=== PATIENT | male | born 2000 | race Caucasian/White ===

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

== ENCOUNTER 2021-03-15 14:19 | Emergency (ER) | payer OTHER ==
[2021-03-15 15:23] LABS: Absolute Lymphocytes (CBC) 1.8 K/uL (0.7-4.9); Basophils % 0.6 % (0-1.3); Hematocrit 44.2 % (39.6-49.0); Lymphocytes % 14.5 % (15.3-44.8); RBC Red Blood Cell Count 5.03 M/uL (4.33-5.43)
[2021-03-15] MEDS ORDERED: PROMETHAZINE INJ 25 MG/ML AMP ONE (15:28)
[2021-03-15] MEDS ORDERED: NA CHLORIDE 0.9% 1,000 ML ONE ×2 (15:28→18:41)
[2021-03-15 15:44] LABS: ALT/SGPT 29 U/L (12-78); Albumin 4.8 g/dL (3.4-5.0); Alkaline Phosphatase 75 U/L (45-117); BUN Blood Urea Nitrogen 9 mg/dL (7-18); Bicarbonate 23 mmol/L (21-32); Bilirubin Direct 0.1 mg/dL (0-0.2); Bilirubin Total 0.5 mg/dL (0.2-1.0); Glucose Level 105 mg/dL (74-106); Lipase 66 U/L (73-393); Protein, Total 8.1 g/dL (6.4-8.2); Sodium Level 142 mmol/L (136-145)
[2021-03-15 15:45] LABS: AST/SGOT 25 U/L (15-37)
--- NOTE | 2021-03-15 18:15 | RAD REPORT ---
EXAM DESCRIPTION: CT - Abdomen Pelvis W Contrast - 03/15/2021 5:58 pm CLINICAL HISTORY: ABD PAIN COMPARISON: <Comparisons> TECHNIQUE: Biphasic, helical CT imaging of the abdomen and pelvis was performed following 100 ml non -ionic IV contrast. No oral contrast administered. All CT scans are performed using dose optimization technique as appropriate and may include automated exposure control or mA/KV adjustment according to patient size. FINDINGS: No suspicious findings in the lung bases. The liver, spleen, and pancreas show no suspicious findings. Gallbladder and biliary tree are also wi thout suspicious finding. Symmetric renal function is seen with no hydronephrosis or suspicious renal mass. No pyelonephritis o r acute parenchymal process. No bladder abnormalities. No adrenal abnormalities. No dilated bowel loops or bowel wall thickening. No appendicitis findings. No free air, free fluid or inflammatory stranding. No hernia, mass or bulky lymphadenopathy. No suspicious bony findings. IMPRESSION: Contrast enhanced CT abdomen and pelvis showing no significant or suspicious finding.
--- NOTE | 2021-03-15 18:38 | ER ---
Nurse's Notes [facility] Name: Frederick Blake Age: 20 yrs Sex: Male : 2000 Arrival Date: 03/15/2021 Time: 14:22 Bed 23 Private MD: Diagnosis: Vomiting;Diarrhea, unspecified;Abdominal pain, Generalized Presentation: 03/15 14:22 Chief complaint: EMS states: Called for vomiting that began at 0700 today, reports may lp1 have eaten something bad; patient's mother gave him Phenergan and Zofran without relief; EMS administered Phenergan 12.5mg IV and NS 250ml; Patient reports continued nausea. 14:22 Coronavirus screen: At this time, the client does not indicate any symptoms associated lp1 with coronavirus-19. Ebola Screen: No symptoms or risks identified at this time. Initial Sepsis Screen: Does the patient meet any 2 criteria? No. Patient's initial sepsis screen is negative. Does the patient have a suspected source of infection? No. Patient's initial sepsis screen is negative. Risk Assessment: Do you want to hurt yourself or someone else? Patient reports no desire to harm self or others. Onset of symptoms was March 15, 2021. 14:22 Method Of Arrival: EMS: [facility] lp1 14:22 Acuity: LETICIA 3 lp1 14:59 Care prior to arrival: IV initiated. 20 GA, in the right antecubital area. lp1 Historical: - Allergies: 16:35 No Known Allergies; lp1 - Home Meds: 16:35 None [Active]; lp1 - PMHx: 16:35 Asthma; Migraines; seasonal allergies; lp1 - Immunization history:: Adult Immunizations up to date. - Social history:: Smoking status: Patient denies any tobacco usage or history of. Screenin:35 Abuse screen: Denies threats or abuse. Denies injuries from another. Nutritional lp1 screening: No deficits noted. Tuberculosis screening: No symptoms or risk factors identified. Fall Risk None identified. Assessment: 17:01 General: Appears in no apparent distress. uncomfortable, Behavior is calm, cooperative, aj1 appropriate for age. Pain: Denies pain. Neuro: Level of Consciousness is awake, alert, obeys commands, Oriented to person, place, time, situation. Cardiovascular: Patient's skin is warm and dry. Respiratory: Airway is patent Respiratory effort is even, unlabored, Respiratory pattern is regular, symmetrical. GI: Abdomen is flat, non-distended, Bowel sounds present X 4 quads. Abd is soft X 4 quads Reports diarrhea, nausea, vomiting. : No signs and/or symptoms were reported regarding the genitourinary system. EENT: No signs and/or symptoms were reported regarding the EENT system. Derm: Skin is pale. Musculoskeletal: No signs and/or symptoms reported regarding the musculoskeletal system. Circulation, motion, and sensation intact. 18:19 Reassessment: Patient appears in no apparent distress at this time. No changes from aj1 previously documented assessment. Patient and/or family updated on plan of care and expected duration. Pain level reassessed. Patient is alert, oriented x 3, equal unlabored respirations, skin warm/dry/pink. Vital Signs: 14:22 BP 110 / 81; Pulse 56; Resp 16; Temp 97.8(O); Pulse Ox 100% on R/A; Weight 63.5 kg (R); lp1 Height 5 ft. 5 in. (165.10 cm); Pain 0/10; 17:01 BP 122 / 79; Pulse 53; Resp 18; Pulse Ox 100% on R/A; aj1 18:20 BP 127 / 80; Pulse 51; Resp 16; Pulse Ox 99% ; aj1 19:29 BP 126 / 77 LA Sitting (auto/reg); Pulse 75; Resp 14 S; Temp 98.3(O); Pulse Ox 100% on sj1 R/A; Pain 0/10; 14:22 Body Mass Index 23.30 (63.50 kg, 165.10 cm) lp1 ED Course: 14:22 Patient arrived in ED. am2 14:52 Triage completed. lp1 14:52 Arm band placed on. lp1 15:07 Initial lab(s) drawn, by me, sent to lab. Maintain EMS IV. Dressing intact. Good blood lp1 return noted. Site clean \T\ dry. Gauge \T\ site: 20g to R AC. 16:35 Patient has correct armband on for positive identification. lp1 16:52 Nikita Metcalf MD is Attending Physician. [facility] 16:57 Darling Cummings RN is Primary Nurse. aj1 17:01 No provider procedures requiring assistance completed. aj1 17:57 CT Abd/Pelvis - IV Contrast Only In Process Unspecified. EDMS 18:38 Maldonado Nunes MD is Referral Physician. [facility] 18:40 Chest Single View XRAY In Process Unspecified. EDMS 19:29 IV discontinued, intact, bleeding controlled, No redness/swelling at site. sj1 19:31 Basic Metabolic Panel Sent. sj1 19:31 CBC with Diff Sent. sj1 19:31 Hepatic Function Sent. sj1 Administered Medications: 15:07 Drug: NS 0.9% 1000 ml Route: IV; Rate: 1000 ml; Site: right antecubital; lp1 19:16 Follow up: IV Status: Completed infusion; IV Intake: 1000ml aj1 15:07 Drug: Phenergan (promethazine) 12.5 mg Route: IVP; Site: right antecubital; lp1 19:15 Follow up: Response: No adverse reaction aj1 18:19 Drug: NS 0.9% 1000 ml Route: IV; Rate: 1 bolus; Site: right antecubital; aj1 18:19 Drug: Zofran (Ondansetron) 4 mg Route: IVP; Site: right antecubital; aj1 19:16 Follow up: Response: No adverse reaction aj1 19:16 Not Given (Patient Refused): morphine 2 mg IVP once; RASS on ADMIN: Combtv4, Very aj1 Agttd3, Agttd2, Rstlss1, AlertClm0, Drwsy-1, Lt Sdtn-2, Mod Sdtn-3, Dp Sdtn-4, UnArsble-5 19:16 Not Given (Physician Discretion): NS 0.9% 1000 ml IV at 1 bolus Per protocol; 1000 mL aj1 bolus Intake: 19:16 IV: 1000ml; Total: 1000ml. aj1 Outcome: 18:38 Discharge ordered by . clarence 19:29 Discharged to home ambulatory. sj1 19:29 Condition: stable 19:29 Discharge instructions given to patient, Instructed on discharge instructions, follow up and referral plans. medication usage, Demonstrated understanding of instructions, follow-up care, medications. 19:32 Patient left the ED. sj1 Signatures: Dispatcher [employer] EDMS Darling Cummings RN RN aj1 Nikita Metcalf MD MD cha Pena, Laura RN RN lp1 Tori Elizabeth am2 Linda Cummings, RN RN sj1
--- NOTE | 2021-03-15 18:38 | EDPHYS ---
Physician Documentation [facility] Name: Frederick Blake Age: 20 yrs Sex: Male : 2000 Arrival Date: 03/15/2021 Time: 14:22 Bed 23 Private MD: ED Physician Nikita Metcalf HPI: 03/15 16:53 This 20 yrs old Male presents to ER via EMS with complaints of Vomiting. clarence 16:53 The patient presents to the emergency department with. clarence Historical: - Allergies: 16:35 No Known Allergies; lp1 - Home Meds: 16:35 None [Active]; lp1 - PMHx: 16:35 Asthma; Migraines; seasonal allergies; lp1 - Immunization history:: Adult Immunizations up to date. - Social history:: Smoking status: Patient denies any tobacco usage or history of. ROS: 17:43 Constitutional: Negative for fever, chills, and weight loss, Eyes: Negative for injury, clarence pain, redness, and discharge, ENT: Negative for injury, pain, and discharge, Neck: Negative for injury, pain, and swelling, Cardiovascular: Negative for chest pain, palpitations, and edema, Respiratory: Negative for shortness of breath, cough, wheezing, and pleuritic chest pain, Back: Negative for injury and pain, : Negative for injury, bleeding, discharge, and swelling, MS/Extremity: Negative for injury and deformity, Skin: Negative for injury, rash, and discoloration, Neuro: Negative for headache, weakness, numbness, tingling, and seizure, Psych: Negative for depression, anxiety, suicide ideation, homicidal ideation, and hallucinations, Allergy/Immunology: Negative for hives, rash, and allergies, Endocrine: Negative for neck swelling, polydipsia, polyuria, polyphagia, and marked weight changes, Hematologic/Lymphatic: Negative for swollen nodes, abnormal bleeding, and unusual bruising. 17:43 Abdomen/GI: Positive for abdominal pain, nausea and vomiting, diarrhea, of the suprapubic area, right upper quadrant, left upper quadrant, right lower quadrant and left lower quadrant. Exam: 17:43 Constitutional: This is a well developed, well nourished patient who is awake, alert, clarence and in no acute distress. Head/Face: Normocephalic, atraumatic. Eyes: Pupils equal round and reactive to light, extra-ocular motions intact. Lids and lashes normal. Conjunctiva and sclera are non-icteric and not injected. Cornea within normal limits. Periorbital areas with no swelling, redness, or edema. ENT: Nares patent. No nasal discharge, no septal abnormalities noted. Tympanic membranes are normal and external auditory canals are clear. Oropharynx with no redness, swelling, or masses, exudates, or evidence of obstruction, uvula midline. Mucous membranes moist. Neck: Trachea midline, no thyromegaly or masses palpated, and no cervical lymphadenopathy. Supple, full range of motion without nuchal rigidity, or vertebral point tenderness. No Meningismus. Chest/axilla: Normal chest wall appearance and motion. Nontender with no deformity. No lesions are appreciated. Cardiovascular: Regular rate and rhythm with a normal S1 and S2. No gallops, murmurs, or rubs. Normal PMI, no JVD. No pulse deficits. Respiratory: Lungs have equal breath sounds bilaterally, clear to auscultation and percussion. No rales, rhonchi or wheezes noted. No increased work of breathing, no retractions or nasal flaring. Back: No spinal tenderness. No costovertebral tenderness. Full range of motion. Male : Normal genitalia with no discharge or lesions. Skin: Warm, dry with normal turgor. Normal color with no rashes, no lesions, and no evidence of cellulitis. MS/ Extremity: Pulses equal, no cyanosis. Neurovascular intact. Full, normal range of motion. Neuro: Awake and alert, GCS 15, oriented to person, place, time, and situation. Cranial nerves II-XII grossly intact. Motor strength 5/5 in all extremities. Sensory grossly intact. Cerebellar exam normal. Normal gait. Psych: Awake, alert, with orientation to person, place and time. Behavior, mood, and affect are within normal limits. 17:43 Abdomen/GI: Inspection: abdomen appears normal, Bowel sounds: normal, Palpation: mild abdominal tenderness, in all quadrants, Liver: no appreciated palpable abnormalities, Hernia: not appreciated. Vital Signs: 14:22 BP 110 / 81; Pulse 56; Resp 16; Temp 97.8(O); Pulse Ox 100% on R/A; Weight 63.5 kg (R); lp1 Height 5 ft. 5 in. (165.10 cm); Pain 0/10; 17:01 BP 122 / 79; Pulse 53; Resp 18; Pulse Ox 100% on R/A; aj1 18:20 BP 127 / 80; Pulse 51; Resp 16; Pulse Ox 99% ; aj1 19:29 BP 126 / 77 LA Sitting (auto/reg); Pulse 75; Resp 14 S; Temp 98.3(O); Pulse Ox 100% on sj1 R/A; Pain 0/10; 14:22 Body Mass Index 23.30 (63.50 kg, 165.10 cm) lp1 MDM: 16:52 Patient medically screened. clarence 17:44 Differential diagnosis: Nonspecific abd pain. Data reviewed: vital signs, nurses notes, [facility] lab test result(s), EKG, radiologic studies, CT scan, plain films. 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 rate is clarence 53 beats/min, rhythm is regular, Pulse oximetry: on room air is 100 %. 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 03/15 14:52 Order name: Basic Metabolic Panel 1 03/15 14:52 Order name: CBC with Diff lp1 03/15 14:52 Order name: Hepatic Function lp1 03/15 14:52 Order name: Lipase; Complete Time: 16:52 [facility] 03/15 14:53 Order name: Basic Metabolic Panel; Complete Time: 16:52 EDMS 03/15 14:53 Order name: CBC with Automated Diff; Complete Time: 16:52 EDMS 03/15 14:53 Order name: Liver (Hepatic) Function; Complete Time: 16:52 EDMS 03/15 17:43 Order name: Chest Single View XRAY [facility] 03/15 17:43 Order name: CT Abd/Pelvis - IV Contrast Only [facility] 03/15 14:52 Order name: IV Saline Lock; Complete Time: 15:00 lp1 03/15 14:52 Order name: Labs collected and sent; Complete Time: 15:00 lp1 Administered Medications: 15:07 Drug: NS 0.9% 1000 ml Route: IV; Rate: 1000 ml; Site: right antecubital; lp1 19:16 Follow up: IV Status: Completed infusion; IV Intake: 1000ml aj1 15:07 Drug: Phenergan (promethazine) 12.5 mg Route: IVP; Site: right antecubital; lp1 19:15 Follow up: Response: No adverse reaction aj1 18:19 Drug: NS 0.9% 1000 ml Route: IV; Rate: 1 bolus; Site: right antecubital; aj1 18:19 Drug: Zofran (Ondansetron) 4 mg Route: IVP; Site: right antecubital; aj1 19:16 Follow up: Response: No adverse reaction aj1 19:16 Not Given (Patient Refused): morphine 2 mg IVP once; RASS on ADMIN: Combtv4, Very aj1 Agttd3, Agttd2, Rstlss1, AlertClm0, Drwsy-1, Lt Sdtn-2, Mod Sdtn-3, Dp Sdtn-4, UnArsble-5 19:16 Not Given (Physician Discretion): NS 0.9% 1000 ml IV at 1 bolus Per protocol; 1000 mL aj1 bolus Disposition Summary: 03/15/21 18:38 Discharge Ordered Location: Home clarence Problem: new clarence Symptoms: have improved clarence Condition: Stable clarence Diagnosis - Vomiting clarence - Diarrhea, unspecified clarence - Abdominal pain, Generalized clarence Followup: clarence - With: Private Physician - When: 2 - 3 days - Reason: Recheck today's complaints, Continuance of care, Re-evaluation by your physician Followup: clarence - With: - When: 2 - 3 days - Reason: Recheck today's complaints, Re-evaluation by your physician Discharge Instructions: - Discharge Summary Sheet clarence - Abdominal Pain, Adult clarence - Food Choices to Help Relieve Diarrhea, Adult clarence - Diarrhea, Adult clarence - Abdominal Pain, Adult, [id number] clarence - Diarrhea, Adult, [id number] clarence Forms: - Medication Reconciliation Form clarence - Thank You Letter clarence - Antibiotic Education clarence - Prescription Opioid Use clarence Prescriptions: - Pepcid 20 mg Oral Tablet - take 1 tablet by ORAL route every 12 hours for 15 days; 30 tablet; Refills: 0, clarence Product Selection Permitted - Zofran 4 mg Oral Tablet - take 1 tablet by ORAL route every 12 hours As needed; 20 tablet; Refills: 0, clarence Product Selection Permitted - dicyclomine 20 mg Oral Tablet - take 1 tablet by ORAL route 4 times per day; 28 tablet; Refills: 0, Product clarence Selection Permitted Signatures: Dispatcher [employer] Darling Mo, RN RN aj1 Nikita Metcalf MD MD cha Pena, Laura, RN RN lp1 Corrections: (The following items were deleted from the chart) 19:31 18:14 Urine Dipstick-Ancillary ordered. clarence sj1
[2021-03-15] MEDS ORDERED: ONDANSETRON 4 MG/2 ML VIAL ONE (18:41)
[2021-03-15 19:50] VITALS: BP 126/77; TEMP 98.3; O2SAT 100
--- NOTE | 2021-03-15 19:55 | RAD REPORT ---
EXAM DESCRIPTION: RAD - Chest Single View - 03/15/2021 6:40 pm CLINICAL HISTORY: COUGH COMPARISON: September 02 TECHNIQUE: AP portable chest image was obtained 03/15/2021 6:40 pm . FINDINGS: Lungs are clear. Heart and vasculature are normal. No measurable pleural effusion and no p neumothorax. No acute bony abnormality seen. No acute aortic findings suspected. IMPRESSION: No acute cardiopulmonary process. No significant change from comparison study.
== END 2021-03-15 19:32 | disposition home or self-care (01) ==
LOC: ER 14:19
DX: R19.7 Diarrhea, unspecified (principal); R10.84 Generalized abdominal pain
CPT/HCPCS: 96361; 85025; 80048; 36415; 80076; 83690; 74177; 71045; 96375; 96374; 99284; Q9967; J2550; J7030 ×2; J2405

== ENCOUNTER 2021-09-06 20:13 | Emergency (ER) | payer OTHER ==
--- NOTE | 2021-09-06 20:48 | EDPHYS ---
Physician Documentation [facility] Name: Frederick Blake Age: 21 yrs Sex: Male : 2000 Arrival Date: 09/06/2021 Time: 20:16 Bed 11 Private MD: ED Physician Seth Amezcua HPI: 09/06 23:01 This 21 yrs old Male presents to ER via Ambulatory with complaints of Laceration To Arm ms3 - Left. 23:01 The patient has a laceration related to: Water bath at work scratched arm occurred at ms3 work, and there are no complicating factors. The injury was accidental. The laceration(s) is(are) located on the Left forearm. Onset: The symptoms/episode began/occurred just prior to arrival. Associated signs and symptoms: The patient has no apparent associated signs or symptoms. 21-year-old male presents after being scratched at work by a water bath prior to arrival. Patient states his discomfort is a 1/10 and described as stinging. Patient denies alleviating or inciting factors. Historical: - Allergies: 20:32 No Known Allergies; ab2 - PMHx: 20:32 Asthma; Migraines; ab2 - Immunization history:: Adult Immunizations unknown. - Social history:: Smoking status: Reported history of juuling and/or vaping. ROS: 23:01 Constitutional: Negative for fever, and chills. Eyes: Negative for injury, pain, ms3 redness, and discharge, Neck: Negative for injury, pain, and swelling, Cardiovascular: Negative for chest pain, and palpitations. Respiratory: Negative for shortness of breath, cough, wheezing, and pleuritic chest pain, Abdomen/GI: Negative for abdominal pain, nausea, vomiting, diarrhea, and constipation, MS/Extremity: Negative for injury and deformity. 23:01 Skin: Positive for abrasion(s). 23:01 All other systems are negative. Exam: 23:01 Constitutional: This is a well developed, well nourished patient who is awake, alert, ms3 and in no acute distress. Eyes: Pupils equal round and reactive to light, extra-ocular motions intact. Lids and lashes normal. Conjunctiva and sclera are non-icteric and not injected. Periorbital areas with no swelling, redness, or edema. Neck: Trachea midline, no cervical lymphadenopathy. Supple, full range of motion without nuchal rigidity, or vertebral point tenderness. No Meningismus. Chest/axilla: Normal chest wall appearance and motion. Nontender with no deformity. Cardiovascular: Regular rate and rhythm with a normal S1 and S2. No gallops, murmurs, or rubs. Normal PMI, no JVD. No pulse deficits. Respiratory: Lungs have equal breath sounds bilaterally, clear to auscultation and percussion. No rales, rhonchi or wheezes noted. No increased work of breathing, no retractions or nasal flaring. Abdomen/GI: Soft, non-tender, with normal bowel sounds. No distension or tympany. No guarding or rebound. No evidence of tenderness throughout. 23:01 Skin: injury, abrasion(s), moderate sized abrasion noted, 6 cm(s), of the left forearm. Vital Signs: 20:28 BP 138 / 71; Pulse 106; Resp 16; Temp 97.9(TE); Pulse Ox 98% on R/A; Weight 65.77 kg; ab2 Height 5 ft. 5 in. (165.10 cm); Pain 0/10; 20:28 Body Mass Index 24.13 (65.77 kg, 165.10 cm) ab2 MDM: 20:46 Patient medically screened. ms3 23:01 Differential diagnosis: superficial laceration, Tetanus booster. Data reviewed: vital ms3 signs, nurses notes. Data interpreted: Pulse oximetry: on room air is 98 %. Interpretation: normal. Counseling: I had a detailed discussion with the patient and/or guardian regarding: the historical points, exam findings, and any diagnostic results supporting the discharge/admit diagnosis, the need for outpatient follow up, to return to the emergency department if symptoms worsen or persist or if there are any questions or concerns that arise at home. ED course: Discussed physical exam findings with patient. Patient to follow-up with his primary care physician as discussed. All questions were answered. Return precautions discussed include worsening symptoms, or any other concerns. 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 Exp: 08/09/2023. Lot #: [id number]. } lp1 Route: IM; Site: left deltoid; 21:15 Follow up: Response: Medication administered at discharge. lp1 Disposition Summary: 09/06/21 20:48 Discharge Ordered Location: Home ms3 Problem: new ms3 Symptoms: are unchanged ms3 Condition: Stable ms3 Diagnosis - Abrasion of left forearm ms3 Followup: ms3 - With: Salinas Langley MD - When: 2 - 3 days - Reason: Re-evaluation by your physician Discharge Instructions: - Discharge Summary Sheet ms3 - Abrasion ms3 Forms: - Medication Reconciliation Form ms3 - Thank You Letter ms3 - Antibiotic Education ms3 - Prescription Opioid Use ms3 Signatures: Gwen Soares RN RN lp1 Seth Amezcua DO DO ms3 Timothy Horowitz ab2 Corrections: (The following items were deleted from the chart) 21:47 21:47 PMHx: seasonal allergies; lp1 lp1
--- NOTE | 2021-09-06 20:48 | ER ---
Nurse's Notes [facility] Name: Frederick Blake Age: 21 yrs Sex: Male : 2000 Arrival Date: 09/06/2021 Time: 20:16 Bed 11 Private MD: Diagnosis: Abrasion of left forearm Presentation: 09/06 20:28 Chief complaint: Patient states: "I was at work and accidentally cut my arm on a piece ab2 of wilfrido metal. I don't know when my last tetanus shot was but I am freaking out that I'll get tetanus. I did put liquid Band-Aid on it." Pt has superficial laceration left forearm. Pt denies any pain. Coronavirus screen: Vaccine status: Patient reports receiving the 2nd dose of the covid vaccine. Client denies travel out of the [place] in the last 14 days. At this time, the client does not indicate any symptoms associated with coronavirus-19. Ebola Screen: Patient negative for fever greater than or equal to 101.5 degrees Fahrenheit, and additional compatible Ebola Virus Disease symptoms Patient denies exposure to infectious person. Patient denies travel to an Ebola-affected area in the 21 days before illness onset. No symptoms or risks identified at this time. Complicating Factors: There are no complicating factors for this patient. Initial Sepsis Screen: Does the patient meet any 2 criteria? No. Patient's initial sepsis screen is negative. Does the patient have a suspected source of infection? No. Patient's initial sepsis screen is negative. Risk Assessment: Do you want to hurt yourself or someone else? Patient reports no desire to harm self or others. Onset of symptoms is unknown. 20:28 Method Of Arrival: Ambulatory ab2 20:28 Acuity: LETICIA 4 ab2 Triage Assessment: 20:32 General: Appears in no apparent distress. comfortable, Behavior is cooperative, ab2 appropriate for age, anxious. Pain: Denies pain. Neuro: No deficits noted. 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 Cardiovascular: No deficits noted. Denies chest pain, shortness of breath. Respiratory: Airway is patent Respiratory effort is even, unlabored, Respiratory pattern is regular, symmetrical. GI: No deficits noted. No signs and/or symptoms were reported involving the gastrointestinal system. : No deficits noted. No signs and/or symptoms were reported regarding the genitourinary system. Derm: Wound noted dorsal aspect of left forearm. Injury Description: Laceration sustained to dorsal aspect of left forearm is bleeding no active bleeding noted. Historical: - Allergies: 20:32 No Known Allergies; ab2 - PMHx: 20:32 Asthma; Migraines; ab2 - Immunization history:: Adult Immunizations unknown. - Social history:: Smoking status: Reported history of juuling and/or vaping. Screenin:00 Abuse screen: Denies threats or abuse. Denies injuries from another. Nutritional lp1 screening: No deficits noted. Tuberculosis screening: No symptoms or risk factors identified. Fall Risk None identified. Assessment: 21:00 General: Appears in no apparent distress. Behavior is calm, cooperative, appropriate lp1 for age. Pain: Denies pain. Neuro: No deficits noted. Cardiovascular: Patient's skin is warm and dry. Respiratory: Respiratory effort is even, unlabored. Derm: Skin is pink, warm \\T\\ dry. Wound noted Wound is Multiple superficial abrasions to left forearm, no active bleeding. 21:00 Musculoskeletal: Circulation, motion, and sensation intact. lp1 Vital Signs: 20:28 BP 138 / 71; Pulse 106; Resp 16; Temp 97.9(TE); Pulse Ox 98% on R/A; Weight 65.77 kg; ab2 Height 5 ft. 5 in. (165.10 cm); Pain 0/10; 20:28 Body Mass Index 24.13 (65.77 kg, 165.10 cm) ab2 ED Course: 20:16 Patient arrived in ED. kz 20:26 Seth Amezcua DO is Attending Physician. ms3 20:32 Triage completed. ab2 20:33 Arm band placed on right wrist. ab2 20:47 Salinas Langley MD is Referral Physician. ms3 21:00 Patient has correct armband on for positive identification. lp1 21:00 No provider procedures requiring assistance completed. Patient did not have IV access lp1 during this emergency room visit. 21:00 Wound care: to abrasion, located on dorsal aspect of left forearm was cleaned with lp1 Hibiclens. 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 Exp: 08/09/2023. Lot #: [id number]. } lp1 Route: IM; Site: left deltoid; 21:15 Follow up: Response: Medication administered at discharge. lp1 Outcome: 20:48 Discharge ordered by . ms3 21:15 Discharged to home ambulatory. lp1 21:15 Condition: good 21:15 Discharge instructions given to patient, Instructed on discharge instructions, follow up and referral plans. Demonstrated understanding of instructions, follow-up care. 21:15 Patient left the ED. lp1 Signatures: Gwen Soares RN RN lp1 Seth Amezcua DO DO ms3 Timothy Horowitz Kelly kz Corrections: (The following items were deleted from the chart) 21:47 21:47 PMHx: seasonal allergies; lp1 lp1
[2021-09-06] MEDS ORDERED: TETANUS & DIPHTHERIA TOX,ADULT 0.5 ML VIAL ONE (21:13)
[2021-09-06 22:35] VITALS: BP 138/71; TEMP 97.9; O2SAT 98
== END 2021-09-06 21:15 | disposition home or self-care (01) ==
LOC: ER 20:13
DX: S50.812A Abrasion of left forearm, initial encounter (principal); W26.8XXA Contact with other sharp object(s), not elsewhere classified, initial encounter; Y93.89 Activity, other specified; Y92.89 Other specified places as the place of occurrence of the external cause; Y99.0 Civilian activity done for income or pay; J45.909 Unspecified asthma, uncomplicated; F17.290 Nicotine dependence, other tobacco product, uncomplicated
CPT/HCPCS: 90471; 90714; 99283

== ENCOUNTER 2021-09-09 17:33 | Emergency (ER) | payer OTHER ==
--- NOTE | 2021-09-09 19:00 | RAD REPORT ---
EXAM DESCRIPTION: RAD - Chest Pa And Lat (2 Views) - 09/09/2021 6:53 pm CLINICAL HISTORY: CHEST PAIN COMPARISON: Portable 03/15/2021 TECHNIQUE: Frontal and lateral views of the chest were obtained. FINDINGS: The lungs are clear. Heart size is normal and central vasculature is within normal limit s. No pleural effusion or pneumothorax seen. No acute bony finding noted. No aortic abnormality. IMPRESSION: No acute cardiopulmonary process.
--- NOTE | 2021-09-09 20:01 | ER ---
Nurse's Notes [facility] Name: Frederick Blake Age: 21 yrs Sex: Male : 2000 Arrival Date: 09/09/2021 Time: 17:36 Bed 9 Private MD: Diagnosis: Strain of muscle and tendon of back wall of thorax Presentation: 09/09 18:25 Chief complaint: Patient states: back pain when breathing that began 2 weeks ago. Pt ss reports this happens once a month, lasts a week and usually goes away. Has been told in the past by his PCP that it may be pleurisy. Coronavirus screen: Client denies travel out of the [place] in the last 14 days. Ebola Screen: Patient denies exposure to infectious person. Patient denies travel to an Ebola-affected area in the 21 days before illness onset. Initial Sepsis Screen: Does the patient meet any 2 criteria? No. Patient's initial sepsis screen is negative. Does the patient have a suspected source of infection? No. Patient's initial sepsis screen is negative. Risk Assessment: Do you want to hurt yourself or someone else? Patient reports no desire to harm self or others. Note PT reports he took a Tramadol and "some kind of muscle relaxer" around 1pm today. States that it did help some. Onset of symptoms was August 26, 2021. 18:25 Method Of Arrival: Ambulatory ss 18:25 Acuity: LETICIA 4 ss Triage Assessment: 20:23 General: Behavior is calm, cooperative. ab2 Historical: - Allergies: 18:28 No Known Allergies; ss - Home Meds: 18:28 None [Active]; ss - PMHx: 18:28 Asthma; Migraines; ss - PSHx: 18:28 None; ss - Immunization history:: Client reports receiving the 2nd dose of the Covid vaccine. - Social history:: Smoking status: Reported history of juuling and/or vaping. Screenin:23 Abuse screen: Denies threats or abuse. Denies injuries from another. Nutritional ab2 screening: No deficits noted. Tuberculosis screening: No symptoms or risk factors identified. Fall Risk None identified. Assessment: 20:00 General: Appears in no apparent distress. comfortable. Neuro: Level of Consciousness is al4 awake, alert, obeys commands, Oriented to person, place, time, situation. Cardiovascular: Patient's skin is warm and dry. Respiratory: Airway is patent Respiratory effort is unlabored. 20:23 General: Appears in no apparent distress. comfortable. Pain: Complains of pain in back. 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 Gait is steady, Speech is normal. Cardiovascular: Heart tones S1 S2 present Patient's skin is warm and dry. Rhythm is sinus rhythm. Respiratory: Airway is patent Respiratory effort is even, unlabored, Breath sounds are clear bilaterally. GI: No deficits noted. No signs and/or symptoms were reported involving the gastrointestinal system. : No deficits noted. No signs and/or symptoms were reported regarding the genitourinary system. Derm: Skin is intact, is healthy with good turgor, Skin is pink, warm \\T\\ dry. Vital Signs: 18:25 BP 127 / 65; Pulse 87; Resp 16; Temp 98.8(TE); Pulse Ox 99% on R/A; Weight 65.77 kg; ss Height 5 ft. 5 in. (165.10 cm); Pain 8/10; 20:22 BP 117 / 71; Pulse 81; Resp 17; Pulse Ox 100% on R/A; ab2 18:25 Body Mass Index 24.13 (65.77 kg, 165.10 cm) ED Course: 17:36 Patient arrived in ED. mr 18:28 Triage completed. ss 18:28 Arm band placed on right wrist. ss 18:32 Desean Neil NP is PHCP. pm1 18:32 Nikita Metcalf MD is Attending Physician. pm1 18:55 XRAY Chest Pa And Lat (2 Views) In Process Unspecified. EDMS 19:50 Timothy Cox is Primary Nurse. al4 20:23 No provider procedures requiring assistance completed. ab2 20:24 Patient has correct armband on for positive identification. Bed in low position. Call ab2 light in reach. 20:24 Patient did not have IV access during this emergency room visit. ab2 Administered Medications: 20:20 Drug: Lidoderm Patch 5 % (700 mg/patch) 1 patches Route: Topical; Site: affected area; ab2 20:20 Drug: Ketorolac 60 mg Route: IM; Site: left vastus lateralis; ab2 Outcome: 20:00 Discharge ordered by . pm1 20:23 Discharged to home ambulatory. ab2 20:23 Condition: good 20:23 Discharge instructions given to patient, Instructed on discharge instructions, follow up and referral plans. medication usage, Demonstrated understanding of instructions, follow-up care, medications, Prescriptions given X 3. 20:24 Patient left the ED. ab2 Signatures: Dispatcher [employer] EDAZ Mira Winn Shelby, RN RN ss Desean Neil, CASHIER CASHIER pm1 Timothy Cox alTimothy Saldana ab2
--- NOTE | 2021-09-09 20:01 | EDPHYS ---
Physician Documentation [facility] Name: Frederick Blake Age: 21 yrs Sex: Male : 2000 Arrival Date: 09/09/2021 Time: 17:36 Bed 9 Private MD: ED Physician Nikita Metcalf HPI: 09/09 18:32 This 21 yrs old Male presents to ER via Ambulatory with complaints of Breathing pm1 Difficulty. 18:32 The patient has shortness of breath at rest. Onset: The symptoms/episode began/occurred pm1 2 week(s) ago. Duration: The symptoms are continuous. The patient's shortness of breath is aggravated by movement, deep breathing, is alleviated by nothing, patient took tramadol prior to arrival for the pain. Associated signs and symptoms: Pertinent negatives: chest pain, fever, nausea, vomiting, Cough. Severity of symptoms: in the emergency department the symptoms are unchanged usually it only lasts for 1 week but he started working out once it improved and it returned. The patient has not experienced similar symptoms in the past. The patient has not recently seen a physician. Historical: - Allergies: 18:28 No Known Allergies; ss - Home Meds: 18:28 None [Active]; ss - PMHx: 18:28 Asthma; Migraines; ss - PSHx: 18:28 None; ss - Immunization history:: Client reports receiving the 2nd dose of the Covid vaccine. - Social history:: Smoking status: Reported history of juuling and/or vaping. ROS: 18:32 Constitutional: Negative for fever, chills, and weight loss, Cardiovascular: Negative pm1 for chest pain, palpitations, and edema, Respiratory: Negative for shortness of breath, cough, wheezing, and pleuritic chest pain, Abdomen/GI: Negative for abdominal pain, nausea, vomiting, diarrhea, and constipation. 18:32 : Negative for injury, bleeding, discharge, and swelling, MS/Extremity: Negative for injury and deformity, Skin: Negative for injury, rash, and discoloration. 18:32 Back: Positive for Pain in the thoracic area. 18:32 All other systems are negative. Exam: 18:32 Constitutional: This is a well developed, well nourished patient who is awake, alert, pm1 and in no acute distress. Vital Signs: 18:25 BP 127 / 65; Pulse 87; Resp 16; Temp 98.8(TE); Pulse Ox 99% on R/A; Weight 65.77 kg; ss Height 5 ft. 5 in. (165.10 cm); Pain 8/10; 20:22 BP 117 / 71; Pulse 81; Resp 17; Pulse Ox 100% on R/A; ab2 18:25 Body Mass Index 24.13 (65.77 kg, 165.10 cm) ss MDM: 18:44 Patient medically screened. pm1 19:59 Data reviewed: vital signs. Data interpreted: Pulse oximetry: on room air is 99 %. pm1 Interpretation: normal. Counseling: I had a detailed discussion with the patient and/or guardian regarding: the historical points, exam findings, and any diagnostic results supporting the discharge/admit diagnosis, radiology results, the need for outpatient follow up, to return to the emergency department if symptoms worsen or persist or if there are any questions or concerns that arise at home. 09/09 18:29 Order name: XRAY Chest Pa And Lat (2 Views); Complete Time: 19:57 ss Administered Medications: 20:20 Drug: Lidoderm Patch 5 % (700 mg/patch) 1 patches Route: Topical; Site: affected area; ab2 20:20 Drug: Ketorolac 60 mg Route: IM; Site: left vastus lateralis; ab2 Disposition Summary: 09/09/21 20:00 Discharge Ordered Location: Home pm1 Problem: new pm1 Symptoms: have improved pm1 Condition: Stable pm1 Diagnosis - Strain of muscle and tendon of back wall of thorax pm1 Followup: pm1 - With: Emergency Department - When: As needed - Reason: Worsening of condition Followup: pm1 - With: Private Physician - When: 2 - 3 days - Reason: Recheck today's complaints, Continuance of care, Re-evaluation by your physician Discharge Instructions: - Discharge Summary Sheet pm1 - Muscle Strain pm1 Forms: - Medication Reconciliation Form pm1 - Thank You Letter pm1 - Antibiotic Education pm1 - Prescription Opioid Use pm1 Prescriptions: - Lidoderm 5 % Topical adhesive patch,medicated - apply 1 patch by TRANSDERMAL route once daily As needed 12 hours on and 12 pm1 hours off in a 24 hour period; 10 patch; Refills: 0, Product Selection Permitted - Cyclobenzaprine 10 mg Oral Tablet - take 1 tablet by ORAL route every 8 hours As needed; 30 tablet; Refills: 0, pm1 Product Selection Permitted - Diclofenac Sodium 75 mg Oral tablet,delayed release (DR/EC) - take 1 tablet by ORAL route 2 times per day As needed; 30 tablet; Refills: 0, pm1 Product Selection Permitted Addendum: 09/11/2021 18:44 Co-signature as Attending Physician, Nikita Metcalf MD I agree with the assessment and c linares plan of care. Signatures: Dispatcher [employer] [facility] Nikita Metcalf MD MD cha Smirch, Shelby, RN RN ss Desean Neil, LEAD ASSISTANT MANAGER LEAD ASSISTANT MANAGER pm1 Timothy Horowitz
[2021-09-09] MEDS ORDERED: KETOROLAC 30 MG/ML INJ ONE (20:20)
[2021-09-09] MEDS ORDERED: LIDOCAINE 4% PATCH ONE (20:20)
[2021-09-10 03:13] VITALS: TEMP 98.8
[2021-09-10 03:15] VITALS: BP 117/71; O2SAT 100
== END 2021-09-09 20:24 | disposition home or self-care (01) ==
LOC: ER 17:33
DX: S29.012A Strain of muscle and tendon of back wall of thorax, initial encounter (principal); M54.6 Pain in thoracic spine
CPT/HCPCS: 71046; 96372; 99284

== ENCOUNTER 2024-05-01 04:14 | Emergency (ER) | payer OTHER ==
[2024-05-01 04:54] LABS: Specific Gravity 1.027 (1.005-1.030); Sqamous Epithelial None Seen /HPF (None Seen); Urine Bacteria None Seen /HPF (<20); Urine Bilirubin NEGATIVE (Negative); Urine Blood Negative (Negative); Urine Clarity Clear (Clear); Urine Color Yellow (Yellow); Urine Culture Reflex Order NOT NEEDED; Urine Glucose NEGATIVE (Negative); Urine Ketones NEGATIVE (Negative); Urine Micro Reflex YN NO BILL MICROSCOPIC; Urine Mucus Slight /HPF (None Seen); Urine Nitrite NEGATIVE (Negative); Urine Protein TRACE (Negative); Urine RBC None Seen /HPF (None Seen); Urine Urobilinogen Normal (Normal); Urine WBC <5 /HPF (<5)
--- NOTE | 2024-05-01 05:00 | EDPHYS ---
Physician Documentation [facility] Name: Frederick Blake Age: 23 yrs Sex: Male : 2000 Arrival Date: 05/01/2024 Time: 04:14 Bed 8 Private MD: ED Physician Kelby Oropeza HPI: 05/01 04:56 This 23 yrs old Male presents to ER via Ambulatory with complaints of Testicular Pain. sp3 04:56 23-year-old male history of migraines and asthma presents with left-sided testicular sp3 pain which she has had before. He denies any urethral discharge, fever, prior torsion, or any other history. He says he might of had some trauma to it while moving. He denies any fever, chest pain, shortness breath, abdominal pain, vomiting, diarrhea, rash, or any other signs or symptoms on ROS at this time.. Historical: - Allergies: 04:30 No Known Allergies; lg3 - Home Meds: 04:30 None [Active]; lg3 - PMHx: 04:30 Asthma; Migraines; lg3 - PSHx: 04:30 None; lg3 - Immunization history:: Adult Immunizations up to date. - Infectious Disease History:: Denies. - Social history:: Smoking status: Reported history of juuling and/or vaping. Patient uses alcohol, occasionally. street drugs, marijuana. ROS: 04:57 Constitutional: Negative for fever, chills, and weight loss, Eyes: Negative for injury, sp3 pain, redness, and discharge, ENT: Negative for injury, pain, and discharge, Neck: Negative for injury, pain, and swelling, Cardiovascular: Negative for chest pain, palpitations, and edema, Respiratory: Negative for shortness of breath, cough, wheezing, and pleuritic chest pain, Abdomen/GI: Negative for abdominal pain, nausea, vomiting, diarrhea, and constipation, Back: Negative for injury and pain, MS/Extremity: Negative for injury and deformity, Skin: Negative for injury, rash, and discoloration, Neuro: Negative for headache, weakness, numbness, tingling, and seizure, Psych: Negative for depression, anxiety, suicide ideation, homicidal ideation, and hallucinations, Allergy/Immunology: Negative for hives, rash, and allergies, Endocrine: Negative for neck swelling, polydipsia, polyuria, polyphagia, and marked weight changes, Hematologic/Lymphatic: Negative for swollen nodes, abnormal bleeding, and unusual bruising, 04:57 All other systems are negative, Exam: 04:57 Constitutional: This is a well developed, well nourished patient who is awake, alert, sp3 and in no acute distress. Head/Face: Normocephalic, atraumatic. Eyes: Pupils equal round and reactive to light, extra-ocular motions intact. Lids and lashes normal. Conjunctiva and sclera are non-icteric and not injected. Cornea within normal limits. Periorbital areas with no swelling, redness, or edema. Neck: Trachea midline, no thyromegaly or masses palpated, and no cervical lymphadenopathy. Supple, full range of motion without nuchal rigidity, or vertebral point tenderness. No Meningismus. Chest/axilla: Normal chest wall appearance and motion. Nontender with no deformity. No lesions are appreciated. Cardiovascular: Regular rate and rhythm with a normal S1 and S2. No gallops, murmurs, or rubs. Normal PMI, no JVD. No pulse deficits. Respiratory: Lungs have equal breath sounds bilaterally, clear to auscultation and percussion. No rales, rhonchi or wheezes noted. No increased work of breathing, no retractions or nasal flaring. Abdomen/GI: Soft, non-tender, with normal bowel sounds. No distension or tympany. No guarding or rebound. No evidence of tenderness throughout. Back: No spinal tenderness. No costovertebral tenderness. Full range of motion. Skin: Warm, dry with normal turgor. Normal color with no rashes, no lesions, and no evidence of cellulitis. MS/ Extremity: Pulses equal, no cyanosis. Neurovascular intact. Full, normal range of motion. Neuro: Awake and alert, GCS 15, oriented to person, place, time, and situation. Cranial nerves II-XII grossly intact. Motor strength 5/5 in all extremities. Sensory grossly intact. Cerebellar exam normal. Normal gait. Psych: Awake, alert, with orientation to person, place and time. Behavior, mood, and affect are within normal limits. 04:57 : Left testicular pain at the base of the scrotum. No epididymal tenderness., Vital Signs: 04:28 BP 136 / 90; Pulse 98; Resp 17 S; Temp 97.2(O); Pulse Ox 100% on R/A; Weight 72.57 kg lg3 (R); Height 5 ft. 5 in. ; Pain 2/10; 04:30 BP 126 / 78 (/pedi); Pulse 66; Resp 16 S; Pulse Ox 98% on R/A; mt4 04:28 Body Mass Index 26.63 (72.57 kg, 165.1 cm) lg3 04:28 Pain Scale: Adult lg3 Tonie Coma Score: 04:38 Eye Response: spontaneous(4). Motor Response: obeys commands(6). Verbal Response: mt4 oriented(5). Total: 15. MDM: 04:23 Medical Screening Exam initiated sp3 04:58 Data reviewed: vital signs, nurses notes. ED course: Differential diagnosis includes sp3 testicular torsion, epididymitis, UTI, other infection, local trauma. Ultrasound is negative of the testicle and UA demonstrates no infection or other abnormality. We will safely discharge patient home with instructions for scrotal support and follow-up with PCP.. 05/01 04:27 Order name: TEAGAN; Complete Time: 04:55 sp3 05/01 04:27 Order name: US Scrotum Testicles sp3 Administered Medications: No medications were administered Disposition Summary: 05/01/24 04:59 Discharge Ordered Notes: Location: Home sp3 Condition: Stable sp3 Diagnosis - Testicular pain, scrotal pain left side sp3 Followup: sp3 - With: Private Physician - When: Upon discharge from the Emergency Department - Reason: Continuance of care Discharge Instructions: - Discharge Summary Sheet sp3 - Scrotal Swelling sp3 Forms: - Medication Reconciliation Form sp3 - Antibiotic Education sp3 - Prescription Opioid Use sp3 - Patient Portal Instructions sp3 - Leadership Thank You Letter sp3 Signatures: Dispatcher [employer] Michaela Stephens RN RN lg3 Kelby Oropeza MD MD sp3
--- NOTE | 2024-05-01 05:00 | ER ---
Nurse's Notes [facility] Name: Frederick Blake Age: 23 yrs Sex: Male : 2000 Arrival Date: 05/01/2024 Time: 04:14 Bed 8 Private MD: Diagnosis: Testicular pain, scrotal pain left side Presentation: 05/01 04:28 Chief complaint: Patient states: left sided testicular pain X1 hr. denies injury. lg3 reports testicle feels sideways. Coronavirus screen: Client denies travel out of the [place] in the last 14 days. At this time, the client does not indicate any symptoms associated with coronavirus-19. Ebola Screen: No symptoms or risks identified at this time. Initial Sepsis Screen: Does the patient meet any 2 criteria? No. Patient's initial sepsis screen is negative. Does the patient have a suspected source of infection? No. Patient's initial sepsis screen is negative. Risk Assessment: Do you want to hurt yourself or someone else? Patient reports no desire to harm self or others. Onset of symptoms was May 01, 2024. 04:28 Method Of Arrival: Ambulatory lg3 04:28 Acuity: LETICIA 3 lg3 Triage Assessment: 04:30 General: Appears in no apparent distress. uncomfortable, Behavior is calm, cooperative. lg3 Pain: Complains of pain in left testicle Pain does not radiate. Pain currently is 2 out of 10 on a pain scale. Noted to be resistant to movement. EENT: No deficits noted. No signs and/or symptoms were reported regarding the EENT system. Neuro: No deficits noted. Cervantes Agitation-Sedation Scale (RASS): 0 - Alert and Calm Level of Consciousness is awake, alert, obeys commands, Oriented to person, place, time, situation. Cardiovascular: No deficits noted. Denies chest pain, shortness of breath, Capillary refill < 3 seconds Clubbing of nail beds is absent JVD is absent Patient's skin is warm and dry. Respiratory: No deficits noted. Airway is patent Respiratory effort is even, unlabored, Respiratory pattern is regular, symmetrical. GI: No signs and/or symptoms were reported involving the gastrointestinal system. : Reports Scrotal pain: sudden onset. Derm: No deficits noted. No signs and/or symptoms reported regarding the dermatologic system. Skin is intact, is healthy with good turgor, Skin is dry, Skin is normal, Skin temperature is warm. Musculoskeletal: No deficits noted. No signs and/or symptoms reported regarding the musculoskeletal system. Circulation, motion, and sensation intact. Range of motion: intact in all extremities. Historical: - Allergies: 04:30 No Known Allergies; lg3 - Home Meds: 04:30 None [Active]; lg3 - PMHx: 04:30 Asthma; Migraines; lg3 - PSHx: 04:30 None; lg3 - Immunization history:: Adult Immunizations up to date. - Infectious Disease History:: Denies. - Social history:: Smoking status: Reported history of juuling and/or vaping. Patient uses alcohol, occasionally. street drugs, marijuana. Screenin:38 [facility] ED Fall Risk Assessment (Adult) History of falling in the last 3 months, mt4 including since admission No falls in past 3 months (0 pts) Confusion or Disorientation No (0 pts) Intoxicated or Sedated No (0 pts) Impaired Gait No (0 pts) Mobility Assist Device Used No (0 pt) Altered Elimination No (0 pt) Score/Fall Risk Level 0 - 2 = Low Risk. Abuse screen: Denies threats or abuse. Nutritional screening: No deficits noted. Tuberculosis screening: No symptoms or risk factors identified. Exposure risk/Travel Screening: None identified. Assessment: 04:35 General: Appears in no apparent distress. comfortable, Behavior is calm, cooperative, mt4 appropriate for age. Neuro: Level of Consciousness is awake, alert, obeys commands. Cardiovascular: Capillary refill < 3 seconds. Respiratory: Airway is patent Respiratory effort is even, unlabored, Respiratory pattern is regular, symmetrical. GI: Abdomen is non-distended. GI: Abd is soft and non tender X 4 quads. :. 04:38 Pain: Complains of pain in pelvis Pain began 1 hour ago. Neuro:. mt4 04:38 : Reports Scrotal pain: sudden onset Denies burning with urination. Musculoskeletal: mt4 Capillary refill < 3 seconds, Range of motion: intact in all extremities. Vital Signs: 04:28 BP 136 / 90; Pulse 98; Resp 17 S; Temp 97.2(O); Pulse Ox 100% on R/A; Weight 72.57 kg lg3 (R); Height 5 ft. 5 in. ; Pain 2/10; 04:30 BP 126 / 78 (/pedi); Pulse 66; Resp 16 S; Pulse Ox 98% on R/A; mt4 04:28 Body Mass Index 26.63 (72.57 kg, 165.1 cm) lg3 04:28 Pain Scale: Adult lg3 [place] Coma Score: 04:38 Eye Response: spontaneous(4). Motor Response: obeys commands(6). Verbal Response: mt4 oriented(5). Total: 15. ED Course: 04:16 Patient arrived in ED. [id number] 04:23 Kelby Oropeza MD is Attending Physician. sp3 04:29 Liz Burger, RN is Primary Nurse. mt4 04:30 Triage completed. lg3 04:30 Arm band placed on right wrist. lg3 04:38 Resting quietly. mt4 04:38 Patient has correct armband on for positive identification. Bed in low position. Call mt4 light in reach. Side rails up X 1. Provided Education on: labs. Client placed on continuous cardiac and pulse oximetry monitoring. NIBP monitoring applied. Door closed. Lights dimmed. Warm blanket given. Pillow given. Verbal reassurance given. Assisted to bathroom. 04:38 No provider procedures requiring assistance completed. Patient did not have IV access mt4 during this emergency room visit. Patient maintains SpO2 saturation greater than 95% on room air. 05:00 Scrotum Testicles In Process Unspecified. EDMS Administered Medications: No medications were administered Medication: 04:38 VIS not applicable for this client. mt4 Outcome: 04:59 Discharge ordered by . sp3 05:02 Discharged to home ambulatory, mt4 05:02 Condition: stable 05:02 Discharge instructions given to patient, Instructed on discharge instructions, follow up and referral plans. Demonstrated understanding of instructions, follow-up care, Prescriptions given X 05:03 Patient left the ED. mt4 Signatures: Dispatcher [employer] EDMS Michaela Matthews RN RN 3 Kelby Oropeza MD MD sp3 Linda Vasquez j6 Liz Burger, RN RN mt4 Corrections: (The following items were deleted from the chart) 04:38 04:35 Pain: Denies pain. mt4 mt4
[2024-05-01 05:17] VITALS: TEMP 97.2
[2024-05-01 05:18] VITALS: BP 126/78; O2SAT 98
--- NOTE | 2024-05-01 07:17 | RAD REPORT ---
EXAM: US Scrotum CLINICAL HISTORY: The patient is 23 years old and is Male; PAIN TECHNIQUE: Real-time ultrasound of the scrotum with color Doppler and image documentation. COMPARISON: No relevant prior studies available. FINDINGS: Right testicle: Unremarkable. No mass. No torsion. Left testicle: Unremarkable. No mass. No torsion. Epididymides: Unremarkable. Scrotum: Trace right hydrocele. IMPRESSION: No acute findings in the scrotum. Electronically signed by: Salinas Galaviz MD 05/01/2024 05:52 AM [facility] 8 Due to temporary technical issues with the PACS/[employer] scribe reporting system, reports are being sign ed by the in-house radiologist without review as a courtesy to ensure prompt reporting the interpreting rad iologist is fully responsible for the content of the report. Transcribed Date/Time: 05/01/2024 7:17 AM
== END 2024-05-01 05:03 | disposition home or self-care (01) ==
LOC: ER 04:14
DX: N50.82 Scrotal pain (principal)
CPT/HCPCS: 76870; 81001; 99283